=== PATIENT | male | born 1995 | race Caucasian/White ===

== ENCOUNTER 2017-11-18 09:24 | Observation (INO) | payer BC ==
[~2017-11-18] VITALS: Ht 182.9 cm; Wt 94.8 kg
[~2017-11-18 09:24] MED LIST: BUPR-126 PO; CHOL10005 PO; LORA-802 PO; MULT-1379 PO; OMEG1CAP35 PO; TRAZ150T8 PO
[2017-11-18] MEDS ORDERED: NS(*) 0.9% 1000 ML BAG 1,000 ML IV ONE (09:50)
--- NOTE | 2017-11-18 09:50 | ER Report ---
History and Physical Time Seen By MD: 09:48 Hx. of Stated Complaint: lower right abd pain since 4pm yesterday, vomitting/nausea HPI/ROS CHIEF COMPLAINT: Right lower quadrant abdominal pain HISTORY OF PRESENT ILLNESS: Patient is a 22-year-old otherwise healthy male who presents emergency department with approximately 18 hours of abdominal pain. Patient states symptoms began slowly around 4 PM yesterday with generalized periumbilical pain, this has slowly moved to the right lower quadrant although not quite at McBurney's point yet. The pain is made worse with motion or with walking. It is associated with nausea but no vomiting. Patient reports pain at 7 out of 10 in intensity. Patient denies fevers or chills. Patient's last solid meal was around 6 PM yesterday. He states he did have a sip of water just prior to coming into the emergency department but has not had solid food since 6 PM yesterday. Has no significant prior surgical history. Past medical history includes depression for which the patient takes Wellbutrin. He takes trazodone as needed for insomnia but has not taken that for quite some time. He is also on Claritin for seasonal allergy. He denies any other medical problems or medications. 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 REVIEW OF SYSTEMS: Constitutional: No fever, no chills. Eyes: No discharge. ENT: No sore throat. Cardiovascular: No chest pain, no palpitations. Respiratory: No cough, no shortness of breath. Gastrointestinal: Ryley pain, nausea no vomiting or diarrhea Genitourinary: No hematuria. Musculoskeletal: No back pain. Skin: No rashes. Neurological: No headache. Allergies: Coded Allergies: No Known Drug Allergies (Unverified , 11/18/17) Home Meds Reported Medications Trazodone Hcl (TRAZODONE HCL) 150 Mg Tablet, 50-150 MG PO QHS Y for INSOMNIA DESYREL: TAKE 50 - 150 MG NEEDED ABOUT AN HOUR BEFORE YOU PLAN TO GO TO SLEEP. 08/17/17 Bupropion Hcl (WELLBUTRIN SR) 150 Mg Tablet.er, 150 MG PO BIDBL, TAB TAKE 250 MG IN THE MORNING AND 250 MG AT LUNCH. 08/17/17 Cholecalciferol (Vitamin D3) (VITAMIN D3) 1,000 Unit Tablet, 1000 UNIT PO QDAY, TAB 08/17/17 Multivits, W-Fe,Other Min (THERA-M) 1 Each Tablet, 1 EACH PO QDAY 08/17/17 Beason-3/Dha/Epa/Fish Oil (FISH OIL 500 MG SOFTGEL) 1 Each Capsule, 2 EACH PO QDAY, CAPSULE TAKE 1000 MG FISH OIL DAILY. 08/17/17 Loratadine (CLARITIN) 10 Mg Tablet, 10 MG PO QDAY Y for ALLERGY SYMPTOMS 08/14/17 Past Medical/Surgical History Seasonal allergies, insomnia, depression Hx Smoking: No Smoking Status: Never Smoker Exposure to Second Hand Smoke?: No Hx Substance Use Disorder: No Hx Alcohol Use: No Constitutional Vital Sign - Last 24 Hours 11/18/17 11/18/17 11/18/17 11/18/17 09:29 09:33 09:39 09:54 Temp 98.3 Pulse 112 113 113 Resp 14 B/P (MAP) 136/77 136/77 (96) Pulse Ox 94 94 95 O2 Delivery Room Air 11/18/17 11/18/17 11/18/17 11/18/17 10:04 10:09 10:14 10:15 Pulse ??? 105 B/P (MAP) 127/75 (92) Pulse Ox 94 96 O2 Flow Rate 2.0 11/18/17 11/18/17 11/18/17 10:29 10:30 11:00 Pulse 97 B/P (MAP) 121/72 (88) 113/64 (80) Pulse Ox 97 Physical Exam General Appearance: The patient is alert, has no immediate need for airway protection and no signs of toxicity. Eyes: Pupils equal and round no pallor or injection. ENT, Mouth: Mucous membranes are moist. Respiratory: There are no retractions, lungs are clear to auscultation. Cardiovascular: Regular rate and rhythm. Gastrointestinal: Patient with rebound tenderness in the right lower quadrant not specifically at McBurney's point. Negative Rovsing sign; decreased bowel sounds. Neurological: Awake alert nontoxic appearing Skin: Warm and dry, no rashes. Musculoskeletal: Neck is supple non tender. Extremities are nontender, nonswollen and have full range of motion. Medical Decision Making Data Points Result Diagram: 11/18/1745 11/18/17 0945 Laboratory Hematology Test 11/18/17 09:45 11/18/17 10:05 Red Blood Count 5.56 M/uL (4.00-5.60) Mean Corpuscular Volume 88.4 fL (80.0-96.0) Mean Corpuscular Hemoglobin 30.8 pg (26.0-33.0) Mean Corpuscular Hemoglobin Concent 34.9 g/dL (32.0-36.0) Red Cell Distribution Width 12.5 % (11.5-14.5) Mean Platelet Volume 9.4 fL (7.2-11.1) Neutrophils (%) (Auto) 88.3 % (39.4-72.5) Lymphocytes (%) (Auto) 4.8 % (17.6-49.6) Monocytes (%) (Auto) 6.7 % (4.1-12.4) Eosinophils (%) (Auto) 0.0 % (0.4-6.7) Basophils (%) (Auto) 0.2 % (0.3-1.4) Nucleated RBC Relative Count (auto) 0.0 /100WBC Neutrophils # (Auto) 22.1 K/uL (2.0-7.4) Lymphocytes # (Auto) 1.2 K/uL (1.3-3.6) Monocytes # (Auto) 1.7 K/uL (0.3-1.0) Eosinophils # (Auto) 0.0 K/uL (0.0-0.5) Basophils # (Auto) 0.0 K/uL (0.0-0.1) Nucleated RBC Absolute Count (auto) 0.00 K/uL Peripheral Blood Smear Yes Y/N Sodium Level 141 mmol/L (137-145) Potassium Level 4.0 mmol/L (3.5-5.0) Chloride Level 101 mmol/L (98-107) Carbon Dioxide Level 25 mmol/L (22-30) Blood Urea Nitrogen 12 mg/dl (9-21) Creatinine 1.10 mg/dl (0.66-1.25) Glomerular Filtration Rate Calc > 60.0 Random Glucose 132 mg/dl (75-110) Calcium Level 9.8 mg/dl (8.4-10.2) Total Bilirubin 1.2 mg/dl (0.2-1.3) Aspartate Amino Transf (AST/SGOT) 27 U/L (0-35) Alanine Aminotransferase (ALT/SGPT) 28 U/L (0-56) Alkaline Phosphatase 78 U/L (0-126) C-Reactive Protein 3.7 mg/dl (<1.0) Total Protein 8.7 gm/dl (6.3-8.2) Albumin 4.9 g/dl (3.5-5.0) Lipase 293 U/L (23-300) Urine Color Yeni Urine Clarity Cloudy Urine pH 7.0 pH (4.8-9.5) Urine Specific Sterling 1.030 Urine Protein 30 mg/dL (NEGATIVE) Urine Glucose (UA) 50 mg/dL (NEGATIVE) Urine Ketones Negative mg/dL (NEGATIVE) Urine Blood Negative (NEGATIVE) Urine Nitrite Negative (NEGATIVE) Urine Bilirubin Negative (NEGATIVE) Urine Urobilinogen 2.0 mg/dL (0.2-1.9) Urine Leukocyte Esterase Negative (NEGATIVE) Urine RBC None /HPF (0-2/HPF) Urine WBC None /HPF (0-5/HPF) Urine Squamous Epithelial Cells None /LPF (</=FEW) Urine Transitional Epithelial Cells Few /LPF (NONE-FEW) Urine Amorphous Crystals Few /HPF Urine Bacteria Negative /HPF (NONE-FEW) Urine Mucus Few /HPF (NONE-FEW) Chemistry Test 11/18/17 09:45 11/18/17 10:05 White Blood Count 25.1 k/uL (4.5-11.0) Red Blood Count 5.56 M/uL (4.00-5.60) Hemoglobin 17.1 g/dL (14.0-18.0) Hematocrit 49.1 % (42.0-52.0) Mean Corpuscular Volume 88.4 fL (80.0-96.0) Mean Corpuscular Hemoglobin 30.8 pg (26.0-33.0) Mean Corpuscular Hemoglobin Concent 34.9 g/dL (32.0-36.0) Red Cell Distribution Width 12.5 % (11.5-14.5) Platelet Count 254 K/uL (150-450) Mean Platelet Volume 9.4 fL (7.2-11.1) Neutrophils (%) (Auto) 88.3 % (39.4-72.5) Lymphocytes (%) (Auto) 4.8 % (17.6-49.6) Monocytes (%) (Auto) 6.7 % (4.1-12.4) Eosinophils (%) (Auto) 0.0 % (0.4-6.7) Basophils (%) (Auto) 0.2 % (0.3-1.4) Nucleated RBC Relative Count (auto) 0.0 /100WBC Neutrophils # (Auto) 22.1 K/uL (2.0-7.4) Lymphocytes # (Auto) 1.2 K/uL (1.3-3.6) Monocytes # (Auto) 1.7 K/uL (0.3-1.0) Eosinophils # (Auto) 0.0 K/uL (0.0-0.5) Basophils # (Auto) 0.0 K/uL (0.0-0.1) Nucleated RBC Absolute Count (auto) 0.00 K/uL Peripheral Blood Smear Yes Y/N Glomerular Filtration Rate Calc > 60.0 Calcium Level 9.8 mg/dl (8.4-10.2) Total Bilirubin 1.2 mg/dl (0.2-1.3) Aspartate Amino Transf (AST/SGOT) 27 U/L (0-35) Alanine Aminotransferase (ALT/SGPT) 28 U/L (0-56) Alkaline Phosphatase 78 U/L (0-126) C-Reactive Protein 3.7 mg/dl (<1.0) Total Protein 8.7 gm/dl (6.3-8.2) Albumin 4.9 g/dl (3.5-5.0) Lipase 293 U/L (23-300) Urine Color Yeni Urine Clarity Cloudy Urine pH 7.0 pH (4.8-9.5) Urine Specific Sterling 1.030 Urine Protein 30 mg/dL (NEGATIVE) Urine Glucose (UA) 50 mg/dL (NEGATIVE) Urine Ketones Negative mg/dL (NEGATIVE) Urine Blood Negative (NEGATIVE) Urine Nitrite Negative (NEGATIVE) Urine Bilirubin Negative (NEGATIVE) Urine Urobilinogen 2.0 mg/dL (0.2-1.9) Urine Leukocyte Esterase Negative (NEGATIVE) Urine RBC None /HPF (0-2/HPF) Urine WBC None /HPF (0-5/HPF) Urine Squamous Epithelial Cells None /LPF (</=FEW) Urine Transitional Epithelial Cells Few /LPF (NONE-FEW) Urine Amorphous Crystals Few /HPF Urine Bacteria Negative /HPF (NONE-FEW) Urine Mucus Few /HPF (NONE-FEW) Urinalysis Test 11/18/17 10:05 Urine Color Yeni Urine Clarity Cloudy Urine pH 7.0 pH (4.8-9.5) Urine Specific Sterling 1.030 Urine Protein 30 mg/dL (NEGATIVE) Urine Glucose (UA) 50 mg/dL (NEGATIVE) Urine Ketones Negative mg/dL (NEGATIVE) Urine Blood Negative (NEGATIVE) Urine Nitrite Negative (NEGATIVE) Urine Bilirubin Negative (NEGATIVE) Urine Urobilinogen 2.0 mg/dL (0.2-1.9) Urine Leukocyte Esterase Negative (NEGATIVE) Urine RBC None /HPF (0-2/HPF) Urine WBC None /HPF (0-5/HPF) Urine Squamous Epithelial Cells None /LPF (</=FEW) Urine Transitional Epithelial Cells Few /LPF (NONE-FEW) Urine Amorphous Crystals Few /HPF Urine Bacteria Negative /HPF (NONE-FEW) Urine Mucus Few /HPF (NONE-FEW) EKG/Imaging Imaging FACILITY: [facility] PATIENT NAME: Montrell Harris : 1995 MR: [id number] V: [id number] EXAM DATE: ORDERING PHYSICIAN: MIKAYLA MANN TECHNOLOGIST: Location: [facility] [place] Patient: Montrell Harris : 1995 Visit/Account:[id number] Date of Sevice: 11/18/2017 ABDOMEN/PELVIS WITH CONTRAST HISTORY: Right lower quadrant pain. TECHNIQUE: CT abdomen and pelvis with intravenous contrast. One of the following dose optimization techniques was utilized in the performance of this exam: Automated exposure control; adjustment of the mA and/ or kV according to the patient's size; or use of an iterative reconstruction technique. Specific details can be referenced in the facility's radiology CT exam operational policy. CONTRAST: 100 mL Isovue-370. COMPARISON: None. FINDINGS: Visualized lung bases: Negative. Hepatobiliary: Negative. Spleen: Negative. Adrenals: Negative. Pancreas: Negative. Kidneys/: 16 mm cyst within the superior pole of the left kidney. Otherwise negative. GI: Appendix is distended measuring up to 17 mm in diameter with moderate to advanced appendiceal and periappendiceal inflammation. There is no adjacent focal fluid collections or free air to suggest perforation. Borderline prominent reactive right lower quadrant lymph nodes. Otherwise negative. Vessels/spaces/nodes: Negative. Bones/soft tissues: Negative. IMPRESSION: Moderate to advanced appendiceal and periappendiceal inflammation consistent with acute appendicitis. There is no focal fluid collections or free air to suggest perforation. Results were discussed with MIKAYLA MANN at 11/18/2017 11:20 AM. Report Dictated By: David Estrada MD at 11/18/2017 11:14 AM Report E-Signed By: David Estrada MD at 11/18/2017 11:20 AM WSN:[id number] ED Course/Re-evaluation Clinical Indication for ER IV: Hydration, IV Access ED Course 11/18/2017 10:04:49 am Patient with right lower quadrant abdominal pain differential diagnosis includes acute appendicitis, mesenteric adenitis, gastroenteritis, less likely kidney stone or urinary tract infection. Plan at this time will be to make patient nothing by mouth. We will begin IV fluids. We will give IV morphine and IV Zofran for both pain and nausea. We will perform CBC electrolytes and a IV contrast enhanced CT of the abdomen and pelvis. Decision to Disposition Date: Nov 18, 2017 Decision to Disposition Time: 11:32 Depart Departure Latest Vital Signs Vital Signs Date Time Temp Pulse Resp B/P (MAP) Pulse Ox O2 Delivery O2 Flow Rate FiO2 11/18/17 11:00 113/64 (80) 11/18/17 10:29 97 97 11/18/17 10:15 2.0 11/18/17 09:29 98.3 14 Room Air Impression: Primary Impression: Acute appendicitis Condition: Improved Disposition: Admitted from ER (to DR Contreras) Problem Qualifiers Primary Impression: Acute appendicitis Acute appendicitis type: with localized peritonitis Qualified Codes: K35.3 - Acute appendicitis with localized peritonitis MIKAYLA MANN MD Nov 18, 2017 09:50
[2017-11-18] MEDS ORDERED: ONDANSETRON 4 MG/2 ML VIAL IVP ONE (10:00)
[2017-11-18] MEDS ORDERED: MORPHINE 4 MG/ML SYR IVP ONE (10:00)
[2017-11-18 10:03] LABS: PLATELET COUNT, AUTOMATED 254 K/uL (150-450)
[2017-11-18] MEDS ORDERED: IOPAMIDOL 76% 100 ML INFUS BTL 100 ML ONE (10:35)
[2017-11-18] MEDS ORDERED: NS 0.9% 50 ML VIAL 100 ML ONE (10:35)
--- NOTE | 2017-11-18 11:23 | RADIOLOGY IMAGING REPORT ---
[place] [facility] [place] NAME: Montrell Harris : 1995 MR: [id number] V: [id number] EXAM DATE: ORDERING PHYSICIAN: MIKAYLA MANN TECHNOLOGIST: Location: [facility] Patient: Montrell Harris : 1995 Visit/Account:[id number] Date of Sevice: 11/18/2017 ABDOMEN/PELVIS WITH CONTRAST HISTORY: Right lower quadrant pain. TECHNIQUE: CT abdomen and pelvis with intravenous contrast. One of the following dose optimization techniques was utilized in the performance of this exam: Autom ated exposure control; adjustment of the mA and/or kV according to the patient's size; or use of an i terative reconstruction technique. Specific details can be referenced in the facility's radiology C T exam operational policy. CONTRAST: 100 mL Isovue-370. COMPARISON: None. FINDINGS: Visualized lung bases: Negative. Hepatobiliary: Negative. Spleen: Negative. Adrenals: Negative. Pancreas: Negative. Kidneys/: 16 mm cyst within the superior pole of the left kidney. Otherwise negative. GI: Appendix is distended measuring up to 17 mm in diameter with moderate to advanced appendiceal an d periappendiceal inflammation. There is no adjacent focal fluid collections or free air to suggest p erforation. Borderline prominent reactive right lower quadrant lymph nodes. Otherwise negative. Vessels/spaces/nodes: Negative. Bones/soft tissues: Negative. IMPRESSION: Moderate to advanced appendiceal and periappendiceal inflammation consistent with acute appendicitis. There is no focal fluid collections or free air to suggest perforation. Results were discussed with MIKAYLA MANN at 11/18/2017 11:20 AM. Report Dictated By: David Estrada MD at 11/18/2017 11:14 AM Report E-Signed By: David Estrada MD at 11/18/2017 11:20 AM WSN:[id number]
[2017-11-18] MEDS ORDERED: PIPERACILLIN/TAZO*3.375GM VIAL 3.375 GM in NS(*) 0.9% 100 ML ADDVANT BAG 100 ML IVPB ONE (11:35)
--- NOTE | 2017-11-18 11:48 | Gen Surgery History & Physical ---
History of Present Illness Chief Complaint RLQ abdominal pain History of Present Illness 22 yo male with 18 hours of RLQ abdominal pain. +nausea, no vomiting. No prior similar s/s. No FCS, no s/s. Last meal 1800 11/17/2017. Pain exacerbated by any movement. History Home Meds Reported Medications Trazodone Hcl (TRAZODONE HCL) 150 Mg Tablet, 50-150 MG PO QHS Y for INSOMNIA DESYREL: TAKE 50 - 150 MG NEEDED ABOUT AN HOUR BEFORE YOU PLAN TO GO TO SLEEP. 08/17/17 Bupropion Hcl (WELLBUTRIN SR) 150 Mg Tablet.er, 150 MG PO BIDBL, TAB TAKE 250 MG IN THE MORNING AND 250 MG AT LUNCH. 08/17/17 Cholecalciferol (Vitamin D3) (VITAMIN D3) 1,000 Unit Tablet, 1000 UNIT PO QDAY, TAB 08/17/17 Multivits,Th W-Fe,Other Min (THERA-M) 1 Each Tablet, 1 EACH PO QDAY 08/17/17 Hagan-3/Dha/Epa/Fish Oil (FISH OIL 500 MG SOFTGEL) 1 Each Capsule, 2 EACH PO QDAY, CAPSULE TAKE 1000 MG FISH OIL DAILY. 08/17/17 Loratadine (CLARITIN) 10 Mg Tablet, 10 MG PO QDAY Y for ALLERGY SYMPTOMS 08/14/17 Allergies: Coded Allergies: No Known Drug Allergies (Unverified , 11/18/17) Review of Systems All Systems Reviewed/Normal: Yes, Except as Noted Gastrointestinal: Abdominal Pain, Other (see HPI) Psychiatric: Depression Exam General Appearance: Alert, Awake, No Acute Distress, Afebrile, Other ( HR 80 RR 16 126/84 RA sat 95%) Neuro: No Gross deficits ENT: Normal Cardiovascular: Normal Rhythm & Peripheral Pulses, Regular Rate and Rhythm Respiratory: No Respiratory Distress, Clear to Auscultation GI: Other (tender RLQ with + guard, no mass or hernia noted) Musculoskeletal: No Weakness/Pain Extremities: Soft and Non Tender, Pulses, Perfused Integumentary: Skin Intact without Lesion / Mass Psych: Alert & Oriented X3, Appropriate Mood & Affect Medical Decision Making Data Points Result Diagram: 11/18/17 0945 11/18/17 0945 EKG / Imaging Monitor Interpretation: Normal Sinus Rhythm Assessment and Plan Problems: (1) Appendicitis Status: Acute Assessment & Plan: Pt recommended to undergo emergent laparoscopic, possible open, appendectomy. Proc, risks, benefits, and alternative treatment discussed at length with pt. He understands risk of bleeding, leak, abscess, damage viscera, need for additional intervention, and conversion to the open procedure. All questions answered and informed consent signed. Time Spent: > 30 min Venous Thromboembolism VTE Risk Physician Assess for VTE Risk: Yes Patient's VTE Risk: Low VTE Diagnostic Test 2 Days Prior to Admit: No Antithrombotics Is Pt On Any Antithrombotics?: No Problem Qualifiers (1) Appendicitis: Appendicitis type: acute appendicitis Acute appendicitis type: with localized peritonitis Qualified Codes: K35.3 - Acute appendicitis with localized peritonitis JESUS VILLAR MD Nov 18, 2017 11:48
[2017-11-18] MEDS ORDERED: NORMOSOL R SOLN(*) 1000 ML BAG 1,000 ML IV ONE (11:54)
[2017-11-18] MEDS ORDERED: LIDOCAINE MPF 1% 5 ML VIAL ONE (12:25)
[2017-11-18] MEDS ORDERED: ROCURONIUM BROM 10 MG/ML 10 ML ONE (12:25)
[2017-11-18] MEDS ORDERED: DEXAMETHASONE SOD PHOS 10MG/ML ONE (12:25)
[2017-11-18] MEDS ORDERED: MIDAZOLAM 2 MG/2 ML VIAL ONE (12:25)
[2017-11-18] MEDS ORDERED: SUCCINYLCHOL CHL 200MG/10ML VL ONE (12:25)
[2017-11-18] MEDS ORDERED: PROPOFOL EMUL(*) 10MG/ML 20 ML 20 ML ONE (12:25)
[2017-11-18] MEDS ORDERED: ONDANSETRON 4 MG/2 ML VIAL ONE (12:25)
[2017-11-18] MEDS ORDERED: fentaNYL CITR 100 MCG/2 ML AMP ONE ×2 (12:25→14:42)
[2017-11-18] MEDS ORDERED: BUPIV/EPI 0.25% 1:200,000 50ML INFIL ONE (12:26)
[2017-11-18] MEDS ORDERED: ROPIVACAINE 0.2% 20 ML VIAL ONE (12:26)
[2017-11-18] MEDS ORDERED: LIDOCAINE 1%MDV(*)200 MG/20 ML 1 ML ONE ×2 (13:00→14:06)
[2017-11-18] MEDS ORDERED: NS 0.9% IRRIGATION 1000ML PLCT IR ONE (13:48)
[2017-11-18] MEDS ORDERED: SUGAMMADEX SOD 200 MG/2 ML SDV ONE (13:59)
--- NOTE | 2017-11-18 14:24 | Post Operative Progress Note ---
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
[2017-11-18] MEDS ORDERED: ONDANSETRON 4 MG/2 ML VIAL IVP PRN (14:25)
[2017-11-18] MEDS ORDERED: ACETAMINOPHEN 325 MG TAB PO PRN (14:25)
[2017-11-18] MEDS ORDERED: MORPHINE 2 MG/ML SYR IVP PRN (14:25)
[2017-11-18] MEDS ORDERED: KCL/D1/2NS 20 MEQ 1000 ML 1,000 ML IV PRN (14:25)
[2017-11-18] MEDS ORDERED: NALOXONE HCL 0.4 MG/ML VIAL IVP PRN (14:25)
[2017-11-18 15:20] VITALS: BP 150/85
[2017-11-18 15:30] VITALS: BP 139/80
[2017-11-18 15:45] VITALS: BP 130/80
[2017-11-18] MEDS: APAP/HYDROCODONE 325/5 TAB PO PRN (16:36)
[2017-11-18] MEDS: PIPERACILLIN/TAZO*3.375GM VIAL 3.375 GM in NS(*) 0.9% 100 ML ADDVANT BAG 100 ML IVPB SCH ×2 (18:50→23:26)
[2017-11-18 19:39] VITALS: BP 138/78
--- NOTE | 2017-11-18 20:04 | General Surgery Progress Note ---
Subjective Progress Notes Subjective no complaints Physical Exam Vital Signs Date Time Temp Pulse Resp B/P (MAP) Pulse Ox O2 Delivery O2 Flow Rate FiO2 11/18/17 19:43 93 Nasal Cannula 1.5 11/18/17 19:39 98.8 98 14 138/78 (98) Intake and Output 11/19/17 07:00 Intake Total 1000 ml Balance 1000 ml Intake IV Total 1000 ml # Voids 2 General Appearance: Alert, Awake, No Acute Distress, Afebrile Cardiovascular: Normal Rhythm & Peripheral Pulses Respiratory: No Respiratory Distress, Clear to Auscultation GI: Soft and Non-Tender, Other (dressing clean and dry) Musculoskeletal: No Weakness/Pain Extremities: Perfused Integumentary: Skin Intact without Lesion / Mass Psych: Alert & Oriented X3, Appropriate Mood & Affect Result Diagram: 11/18/17 0945 11/18/17 0945 Monitor Interpretation: Normal Sinus Rhythm Assessment and Plan Problems: (1) Appendicitis Status: Acute Assessment & Plan: Pt recommended to undergo emergent laparoscopic, possible open, appendectomy. Proc, risks, benefits, and alternative treatment discussed at length with pt. He understands risk of bleeding, leak, abscess, damage viscera, need for additional intervention, and conversion to the open procedure. All questions answered and informed consent signed. Stable post op progress. Should be able to DC tomorrow after 24 hours of antibiotics, geeta if WBC improved. Exam Sepsis Risk: No Definite Risk Problem Qualifiers (1) Appendicitis: Appendicitis type: acute appendicitis Acute appendicitis type: with localized peritonitis Qualified Codes: K35.3 - Acute appendicitis with localized peritonitis JESUS VILLAR MD Nov 18, 2017 20:04
[2017-11-18] MEDS: FAMOTIDINE 20 MG TAB PO SCH (20:56)
[2017-11-18 23:18] VITALS: BP 118/72
[2017-11-19 03:27] VITALS: BP 111/66
[2017-11-19] MEDS: PIPERACILLIN/TAZO*3.375GM VIAL 3.375 GM in NS(*) 0.9% 100 ML ADDVANT BAG 100 ML IVPB SCH (05:37)
[2017-11-19 06:11] LABS: PLATELET COUNT, AUTOMATED 195 K/uL (150-450)
--- NOTE | 2017-11-19 08:06 | General Surgery Progress Note ---
Subjective Progress Notes Subjective No complaints. Not much pain. Passing flatus without problems. Physical Exam Vital Signs Date Time Temp Pulse Resp B/P (MAP) Pulse Ox O2 Delivery O2 Flow Rate FiO2 11/19/17 05:34 92 11/19/17 03:27 98.0 103 12 111/66 (81) Nasal Cannula 1.0 General Appearance: Alert, Awake, No Acute Distress, Afebrile GI: Other (Soft, appropriate postop TTP, dressings C/D/I) Extremities: Warm, Perfused Result Diagram: 11/19/17 0555 11/18/17 0945 Monitor Interpretation: Normal Sinus Rhythm Assessment and Plan Problems: (1) Appendicitis Status: Acute Assessment & Plan: Pt recommended to undergo emergent laparoscopic, possible open, appendectomy. Proc, risks, benefits, and alternative treatment discussed at length with pt. He understands risk of bleeding, leak, abscess, damage viscera, need for additional intervention, and conversion to the open procedure. All questions answered and informed consent signed. Stable post op progress. Should be able to DC tomorrow after 24 hours of antibiotics, geeta if WBC improved. 11/19/17: Doing well. WBC still 20K but coming down and patient afebrile. Clinically, patient looks great. Will start regular diet, stop IV fluids, start PO pain meds. If he does OK today will d/c to home later today. Condition Stable. Time Spent: < 30 min Exam Sepsis Risk: No Definite Risk Problem Qualifiers (1) Appendicitis: Appendicitis type: acute appendicitis Acute appendicitis type: with localized peritonitis Qualified Codes: K35.3 - Acute appendicitis with localized peritonitis BREONNA FERNÁNDEZ MD Nov 19, 2017 08:06
[2017-11-19] MEDS: FAMOTIDINE 20 MG TAB PO SCH (08:17)
[2017-11-19 08:19] VITALS: BP 113/66
[2017-11-19 08:39] VITALS: Ht 182.9 cm; Wt 94.8 kg
[2017-11-19] MEDS ORDERED: DOCUSATE SODIUM 100 MG CAP PO SCH (09:00)
--- NOTE | 2017-11-19 10:35 | OPERATIVE REPORT 1 ---
EVENT DATE: November 18, 2017 SURGEON: Bhavya Contreras MD, [facility] ANESTHESIOLOGIST: Ronal Chapman MD ANESTHESIA: General endotracheal. PREOPERATIVE DIAGNOSIS Acute appendicitis. POSTOPERATIVE DIAGNOSIS Acute appendicitis. PROCEDURE PERFORMED Laparoscopic appendectomy. INDICATIONS FOR OPERATION This patient is a 22-year-old male with peritonitis upon examination of the right lower quadrant with markedly abnormal 2 cm inflamed retrocecal appendix on imaging. He is brought to the operating room at this time for appendectomy. FINDINGS AT THE TIME OF OPERATION The patient had a markedly inflamed, retrocecal appendix with dense adhesions along the right paracolic gutter extending up to the inferior aspect of the right hepatic lobe. There was diffuse fibrinous exudate overlying the appendix , but no gross perforation. DETAILS OF THE OPERATION On November 18, 2017, the patient was brought to the operating room, placed in the supine position. The appropriate lines and monitors were placed. He was induced and intubated under general anesthesia without difficulty. He was then prepped and draped in the usual sterile manner. Pneumoperitoneum was established at the infraumbilical position using standard open technique. Skin , subcutaneous and fascial tissues were opened under direct vision. Two stay sutures of #1 Vicryl were placed in the fascia. Calhoun trocar was inserted under direct vision. Pneumoperitoneum was established. The laparoscope was inserted, and under direct vision two additional trocars were placed, a 5 mm in the lower midline, and a 12 mm in the right upper quadrant. The patient was then placed in the Trendelenburg position. The dense adhesions were lysed along the right paracolic gutter using sharp dissection. The markedly inflamed dilated appendix was dissected free from its position along the paracolic gutter down to the base of the cecum. The mesoappendix was opened using careful blunt dissection. The appendix was divided at this level using the bowel laparoscopic stapler. The mesoappendix was clipped with multiple Ligaclips and divided using sharp dissection. The appendix was placed in the Endopouch bag and removed from the abdominal cavity. The operative field was hemostatic. This was then irrigated copiously with 1 liter of saline, given the marked inflammation. The effluent fluid was evacuated and clear. The right upper quadrant trocar site was closed with the Hamlet-Paez device using a #1-Vicryl. The trocars were removed under direct vision. All sites were hemostatic. Pneumoperitoneum was evacuated. Fascia at the infraumbilical site was closed with the two stay sutures of #1-Vicryl. Wounds were infiltrated with 40 mL of 1% lidocaine without epinephrine. Skin edge was reapproximated with running subcuticular 4-0 PDS. The wounds were then dressed with Mastisol, Steri-Strips and dry sterile gauze. Patient was then extubated and taken to the recovery room in stable condition. He tolerated the procedure well. Final sponge and needle count reported correct x 2. Estimated blood loss less than 10 mL. MTDD
[2017-11-19] MEDS ORDERED: DOCU-202 PO (12:21)
[2017-11-19] MEDS ORDERED: LOR5/325 PO (12:21)
--- NOTE | 2017-11-19 12:24 | Short(Outpt) Discharge Summary ---
Discharge Summary Reason for Hosp/Final Diag: (1) Appendicitis Status: Acute Hospital Course & Plan: Pt recommended to undergo emergent laparoscopic, possible open, appendectomy. Proc, risks, benefits, and alternative treatment discussed at length with pt. He understands risk of bleeding, leak, abscess, damage viscera, need for additional intervention, and conversion to the open procedure. All questions answered and informed consent signed. Stable post op progress. Should be able to DC tomorrow after 24 hours of antibiotics, geeta if WBC improved. 11/19/17: Doing well. WBC still 20K but coming down and patient afebrile. Clinically, patient looks great. Will start regular diet, stop IV fluids, start PO pain meds. If he does OK today will d/c to home later today. 11/19/17 (afternoon): Doing well. Tolerating regular diet. Very little pain. Afebrile. Will d/c to home. Discharge Instructions Home Meds Active Scripts Docusate Sodium (DOCUSATE SODIUM) 100 Mg Capsule, 1 CAP PO BID, #30 CAPSULE 0 Refills Prov:TREMAINE FERNÁNDEZ MD 11/19/17 Hydrocodone Bit/Acetaminophen (HYDROCODON-ACETAMINOPHEN 5-325) 1 Each Tablet, 1- 2 TAB PO Q4H Y for MODERATE PAIN, #30 TAB 0 Refills Prov:TREMAINE FERNÁNDEZ MD 11/19/17 Reported Medications Trazodone Hcl (TRAZODONE HCL) 150 Mg Tablet, 50-150 MG PO QHS Y for INSOMNIA DESYREL: TAKE 50 - 150 MG NEEDED ABOUT AN HOUR BEFORE YOU PLAN TO GO TO SLEEP. 08/17/17 Bupropion Hcl (WELLBUTRIN SR) 150 Mg Tablet.er, 150 MG PO BIDBL, TAB TAKE 250 MG IN THE MORNING AND 250 MG AT LUNCH. 08/17/17 Cholecalciferol (Vitamin D3) (VITAMIN D3) 1,000 Unit Tablet, 1000 UNIT PO QDAY, TAB 08/17/17 Multivits, W-Fe,Other Min (THERA-M) 1 Each Tablet, 1 EACH PO QDAY 08/17/17 [place]-3/Dha/Epa/Fish Oil (FISH OIL 500 MG SOFTGEL) 1 Each Capsule, 2 EACH PO QDAY, CAPSULE TAKE 1000 MG FISH OIL DAILY. 08/17/17 Loratadine (CLARITIN) 10 Mg Tablet, 10 MG PO QDAY Y for ALLERGY SYMPTOMS 08/14/17 Follow up Referrals: General Surgery - 12/05/17 @ Surgery, General with Tremaine Fernández Md You have a follow up appointment scheduled with Dr. Fernández on 12/05/17, at 2: 30pm. Diet: Regular Activity: As Tolerated Special Instructions: You my remove the white surgical dressings on 11/20/17, then you can shower. After showering, leave the incisions open to air but leave the steristrips in place until they fall off on their own. Do not immerse the incisions for 2 weeks. Problem Qualifiers (1) Appendicitis: Appendicitis type: acute appendicitis Acute appendicitis type: with localized peritonitis Qualified Codes: K35.3 - Acute appendicitis with localized peritonitis TREMAINE FERNÁNDEZ MD Nov 19, 2017 12:24
[2017-11-19] MEDS: APAP/HYDROCODONE 325/5 TAB PO PRN (13:08)
== END 2017-11-19 12:19 | disposition home or self-care (01) ==
LOC: ER 09:35 → OR 11:27 → MED 15:20 → UNDOADMOB 15:20
PROVIDERS: ADMIT Surgery; ATTEND Surgery
DX: K37 Unspecified appendicitis (principal)
CPT/HCPCS: 36415; 44970; 74177; 81001; 83690; 85025; 86140; 88304; 99285; G0378; J0330; J1100; J2001; J2250; J2270; J2405; J2543; J2704; J3010; J3480; J7030; J7050; Q9967; 82040; 82247; 82310; 82374; 82435; 82565; 82947; 84075; 84132; 84155; 84295; 84450; 84460; 84520; 96361; 96374; 96375; J2795